=== PATIENT | male | born 1975 | race Hispanic/Latino ===

== ENCOUNTER 2020-04-21 08:30 | Day surgery (SDC) | payer OTHER ==
[2020-04-18 13:05] VITALS: BMI 31.8
[2020-04-21] MEDS ORDERED: PROPOFOL 200 MG/20 ML VIAL ONE (09:36)
[2020-04-21] MEDS ORDERED: Ondansetron PF 4 MG/2 ML Vial ONE (09:36)
[2020-04-21] MEDS ORDERED: Ropivacaine 0.2% HCl/PF (40 MG/20 ML VIAL) ONE (09:36)
[2020-04-21] MEDS ORDERED: Rocuronium Bromide 10 MG/ML (10ML VIAL) ONE ×2 (09:36)
[2020-04-21] MEDS ORDERED: Glycopyrrolate 0.2 MG/ML 5 ML SYRINGE ONE (09:36)
[2020-04-21] MEDS ORDERED: Dexamethasone 20 MG/5 ML VIAL ONE (09:36)
[2020-04-21] MEDS ORDERED: Ropivacaine 0.5% HCl/PF (150 MG/30 ML VIAL) ONE (09:36)
[2020-04-21] MEDS ORDERED: Lidocaine 1% PF 5 ML VIAL ONE (09:36)
[2020-04-21] MEDS ORDERED: Midazolam HCl 2 mg/2 ml Vial ONE (09:42)
[2020-04-21] MEDS ORDERED: Fentanyl 100 MCG/2 ML VIAL ONE ×3 (09:42→12:26)
[2020-04-21] MEDS ORDERED: Lidocaine 2% PF 5 ML VIAL ONE (10:36)
[2020-04-21] MEDS ORDERED: Ketorolac Tromethamine 30 MG/ML VIAL IVP PRN (10:40)
[2020-04-21] MEDS ORDERED: Ondansetron PF 4 MG/2 ML Vial IVP PRN (10:40)
[2020-04-21] MEDS ORDERED: traMADol HCl 50 MG TAB PO PRN ×2 (10:40)
[2020-04-21] MEDS ORDERED: Zolpidem Tartrate 5 MG TAB PO PRN (10:40)
[2020-04-21] MEDS ORDERED: Acetaminophen 325 MG TAB PO PRN (10:40)
[2020-04-21] MEDS ORDERED: Ropivacaine 0.2% 550 ML 550 ML NERVE BLCK SCH (10:40)
[2020-04-21] MEDS ORDERED: HYDROcodone/Acetaminophen 10/325 mg Tablet PO PRN ×2 (10:40)
[2020-04-21] MEDS ORDERED: Promethazine HCl 25 MG/ML VIAL IM PRN (10:40)
[2020-04-21] MEDS ORDERED: Fentanyl 100 MCG/2 ML VIAL IV PRN (10:41)
[2020-04-21] MEDS ORDERED: SUGAMMADEX SODIUM 200 MG/2 ML VIAL ONE (11:53)
--- NOTE | 2020-04-22 05:57 | OP ---
DATE OF PROCEDURE: 04/21/2020 PREOPERATIVE DIAGNOSIS: Ruptured Achilles tendon, right. POSTOPERATIVE DIAGNOSIS: Ruptured Achilles tendon, right. PROCEDURE PERFORMED: Repair of right Achilles tendon. ANESTHESIA: General. BLOOD LOSS: Minimal. SPECIMEN: None. DRAIN: None. COMPLICATION: None. DESCRIPTION OF PROCEDURE: The patient was taken to the operating room, where general anesthesia induced. Right leg was prepped and draped in usual sterile fashion. With the patient in a prone position, I made a medial approach to the Achilles tendon. I preserved the tendon sheath for later repair. The large defect in the Achilles tendon was identified. I removed some of the old hematoma and devitalized strands of tendon. I then used a Maria M type zigzag incision to repair the tendon with #5 Ethibond, then reinforced this with #2 Vicryl. Irrigation was performed. Tourniquet was released. Hemostasis was obtained. The tendon sheath was closed with 0 Vicryl and the skin was closed with Stratafix 3-0. Skin glue was applied. Sterile dressing was applied. The patient was placed in a splint. There were no complications. Job ID: [id number]
== END 2020-04-21 14:10 | disposition home or self-care (01) ==
LOC: SDC 08:30
PROVIDERS: ATTEND Orthopaedic Surgery
PROC: 0LQN0ZZ Repair Right Lower Leg Tendon, Open Approach (ICD-10-PCS; principal; 2020-04-21)
DX: S86.011A Strain of right Achilles tendon, initial encounter (principal); F90.1 Attention-deficit hyperactivity disorder, predominantly hyperactive type; F41.9 Anxiety disorder, unspecified; G47.31 Primary central sleep apnea; F51.04 Psychophysiologic insomnia; Z79.899 Other long term (current) drug therapy
CPT/HCPCS: A4306; J0690; J1100; J2250; J2405; J2704; J2795; J3010

== ENCOUNTER 2021-03-11 07:01 | Emergency (ER) | payer BC, OTHER ==
[2021-03-11 07:51] LABS: #Basophils 0.1 thou/uL (0.0-0.2); #Eosinphils 0.1 thou/uL (0.0-0.7); #Lymphocytes 1.7 thou/uL (1.20-3.40); #Monocytes 0.4 thou/uL (0.11-0.59); #Neutrophils 3.1 thou/uL (1.40-6.50); %Basophils 1.3 % (0.0-1.0); %Eosinophils 2.5 % (0.0-10.0); %Lymphocytes 30.7 % (21.0-51.0); %Monocytes 7.4 % (0.0-10.0); Mean Corpuscular HGB CONC 32.4 g/dL (32.0-36.0); Mean Corpuscular Hemoglobin 29.6 pg (27.0-31.0); Mean Corpuscular Volume 91.2 fL (78.0-98.0); Mean Platelet Volume 7.9 fL (7.4-10.4); Platelet Count 254 thou/uL (130-400); RBC Distribution Width 12.6 % (11.5-14.5); Red Blood Cell (RBC) Count 5.09 mill/uL (4.70-6.10); White Blood Cell (WBC) Count 5.4 thou/uL (4.8-10.8)
[2021-03-11 08:07] LABS: ALT (SGPT) 32 U/L (8-55); AST (SGOT) 17 U/L (5-34); Alkaline Phosphatase 140 U/L (40-110); Anion Gap 11 mmol/L (10-20); BUN (Urea Nitrogen) 19 mg/dL (8.9-20.6); Bilirubin, Total 0.4 mg/dL (0.2-1.2); Calc. Creatinine Clearance 0 mL/min (70-130); Calcium 9.1 mg/dL (7.8-10.44); Carbon Dioxide 24 mmol/L (22-29); Chloride 110 mmol/L (98-107); Glucose 113 mg/dL (70-105); Potassium 3.9 mmol/L (3.5-5.1); Sodium 141 mmol/L (136-145)
[2021-03-11 08:10] LABS: Bacteria/HPF None Seen HPF (None Seen); Bilirubin Negative (Negative); Blood, Urine 3+ (Negative); Clarity Clear (Clear); Glucose, Urine (Dipstick) Normal (Negative); Ketone, Urine Negative (Negative); Leukocyte Negative Leu/uL (Negative); Nitrite Negative (Negative); Protein, Urine (Dipstick) 10 mg/dL (Neg-Trace); RBC/HPF Greater than 50 HPF (0-3); Specific Gravity, Urine 1.028 (1.002-1.036); Squamous Epithelial None Seen HPF (0-3); Urobilinogen Normal mg/dL (Less than 2); pH, Urine 5.5 (5.0-9.0)
[2021-03-11] MEDS ORDERED: Iopamidol-370 76% 500 ML 1 ML ONE (09:18)
== END 2021-03-11 09:08 | disposition home or self-care (01) ==
LOC: ERS 07:01
DX: M54.6 Pain in thoracic spine (principal); R31.9 Hematuria, unspecified; I10 Essential (primary) hypertension; Z87.891 Personal history of nicotine dependence; Z79.899 Other long term (current) drug therapy
CPT/HCPCS: 74177; 80053; 81003; 81015; 85025; Q9967